=== PATIENT | female | born 1985 | race Two or more races ===

== ENCOUNTER 2017-11-25 10:19 | Emergency (ER) | payer MEDICAID ==
[~2017-11-25] VITALS: Ht 152.4 cm; Wt 44.9 kg
--- NOTE | 2017-11-25 10:19 | NUR ---
BIB [facility] C/O ABDOMINAL PAIN WITH NAUSEA AND VOMITING. NAD NOTED. HX OF COLORECTAL CA. RR EVEN AND UNLABORED. PT PLACED ON MONITOR AND GOWN. MD AT BEDSIDE.
[2017-11-25] MEDS ORDERED: ONDANSETRON HCL/PF 4 MG/2 ML VIAL ONE ×2 (10:52→14:38)
[2017-11-25 10:58] LABS: BASOPHILS # (AUTO) 0.1 /CMM (0.0-0.2); EOSINOPHILS % (AUTO) 0.1 % (0.0-6.0); HEMOGLOBIN 13.9 g/dL (11.5-14.8); LYMPHOCYTES # (AUTO) 0.6 /CMM (0.8-4.8); MONOCYTES # (AUTO) 0.4 /CMM (0.1-1.30)
[2017-11-25] MEDS ORDERED: IV NS 0.9% 1,000 ML BAG IV ONE (11:00)
[2017-11-25] MEDS ORDERED: ONDANSETRON HCL/PF 4 MG/2 ML VIAL IVP ONE (11:00)
[2017-11-25 11:02] LABS: HEMATOCRIT 42 % (33-45); LYMPHOCYTES % (AUTO) 7.1 % (20.0-44.0); MEAN CORPUSCULAR HEMOGLOBIN 27 PG (26.0-33.0); MEAN CORPUSCULAR HGB CONC 33 g/dl (31.0-36.0); MEAN CORPUSCULAR VOLUME 80 fL (82-100); MONOCYTES % (AUTO) 4.6 % (2.0-12.0); NEUTROPHILS # (AUTO) 7.3 /CMM (1.8-8.9); NEUTROPHILS % (AUTO) 87.2 % (43.0-81.0); PLATELET COUNT (AUTO) 296 /CMM (150-450); RDW COEFFICIENT OF VARIATION 16.3 (11.5-15.0); RED BLOOD CELL COUNT(AUTO) 5.22 MIL/uL (4.0-5.2); WHITE BLOOD COUNT (AUTO) 8.4 K/uL (4.3-11.0)
[2017-11-25 11:13] LABS: INR 0.98 (0.85-1.15)
[2017-11-25 11:27] LABS: CALCIUM, SERUM 9.5 mg/dL (8.5-10.1); CREATININE 0.6 mg/dL (0.6-1.3); POTASSIUM 3.8 mmol/L (3.5-5.1)
[2017-11-25] MEDS ORDERED: diphenhydrAMINE HCL 50 MG/ML VIAL IV ONE (11:30)
[2017-11-25] MEDS ORDERED: MORPHINE SULFATE INJ 2 MG/ML DISP.SYRIN SQ ONE (11:30)
[2017-11-25] MEDS ORDERED: diphenhydrAMINE HCL 50 MG/ML VIAL ONE (11:40)
[2017-11-25] MEDS ORDERED: MORPHINE SULFATE INJ 4 MG/ML DISP.SYRIN ONE ×2 (11:40→12:46)
[2017-11-25] MEDS ORDERED: MORPHINE SULFATE INJ 2 MG/ML DISP.SYRIN IV ONE (12:30)
[2017-11-25 13:08] LABS: BAND % (MANUAL) 5 % (0.0-5.0); LYMPHOCYTES % (MANUAL) 7 % (16-48); MONOCYTES % (MANUAL) 4 % (0-11.0); NEUTROPHILS % (MANUAL) 84 (42-76)
--- NOTE | 2017-11-25 13:30 | NUR ---
DR JUARES SPEAKING WITH [facility]
[2017-11-25] MEDS ORDERED: ACETAMINOPHEN ES 500 MG TABLET ONE (14:50)
[2017-11-25 14:57] VITALS: BP 103/61
--- NOTE | 2017-11-25 14:58 | NUR ---
Patient discharged to home in stable condition. Written and verbal after care instructions given. Patient verbalizes understanding of instruction.IV removed. Catheter intact and site benign. Pressure and 4x4 applied to site. No bleeding noted. per pt and family will follow up with [facility]. no further complaints. escorted via wheelchair. pt in stable condition.
== END 2017-11-25 14:58 | disposition home or self-care (01) ==
LOC: ER 10:20
DX: R19.00 Intra-abdominal and pelvic swelling, mass and lump, unspecified site (principal); C19 Malignant neoplasm of rectosigmoid junction; N13.9 Obstructive and reflux uropathy, unspecified; K59.09 Other constipation; Z85.038 Personal history of other malignant neoplasm of large intestine; Z88.5 Allergy status to narcotic agent
CPT/HCPCS: 36415; 80048-TC; 85025-TC; 85730-TC; A4606; J1200; J2270; J2405; J7030; Z7610